=== PATIENT | male | born 1990 | race American Indian/Alaskan Native ===

== ENCOUNTER 2021-11-16 13:46 | Emergency (ER) | payer SELFPAY ==
[2021-11-16 17:20] LABS: Basophils % (Auto) 0.4 % (0.0-1.8); Eosinophils # (Auto) 0.1 K/mm3 (0.0-0.4); Eosinophils % (Auto) 0.8 % (0.0-4.3); Hematocrit 44.9 % (35.5-45.6); Hemoglobin 14.6 gm/dl (11.8-15.2); Lymphocytes # (Auto) 1.1 K/mm3 (1.2-5.4); Lymphocytes % (Auto) 9.9 % (13.4-35.0); Mean Corpuscular HGB Conc 33 % (32-34); Mean Corpuscular Volume 92 fl (84-94); Monocytes # (Auto) 0.6 K/mm3 (0.0-0.8); Monocytes % (Auto) 5.9 % (0.0-7.3); Platelet Count 292 K/mm3 (140-440); Red Blood Count 4.89 M/mm3 (3.65-5.03)
--- NOTE | 2021-11-16 17:21 | Emergency Department Report ---
ED General Adult HPI - General Chief complaint: Weakness Stated complaint: FALL Time Seen by Provider: 11/16/21 16:14 Source: patient, EMS Mode of arrival: Wheelchair Limitations: No Limitations - History of Present Illness Initial comments: Patient is a 31-year-old male presents emergency room complaints of lightheadedness that began yesterday. He states he feels near syncope. He denies any chest pain, shortness of breath, fever, nausea, vomiting, diarrhea, cough. Past medical history of asthma and states he needs a refill of his inhaler. He denies any medication allergies. He endorses tobacco, marijuana, alcohol use. He denies any other drug use. ED Review of Systems ROS: Stated complaint: FALL Other details as noted in HPI Comment: All other systems reviewed and negative ED Past Medical Hx - Past Medical History Previous Medical History?: Yes Hx Asthma: Yes ED Physical Exam - General Limitations: No Limitations General appearance: alert, in no apparent distress - Head Head exam: Present: atraumatic, normocephalic - Eye Eye exam: Present: normal appearance - ENT ENT exam: Present: mucous membranes moist - Respiratory Respiratory exam: Present: normal lung sounds bilaterally. Absent: respiratory distress, wheezes, rales, rhonchi, stridor, chest wall tenderness, accessory muscle use, decreased breath sounds, prolonged expiratory - Cardiovascular Cardiovascular Exam: Present: regular rate, normal rhythm, normal heart sounds. Absent: systolic murmur, diastolic murmur, rubs, gallop - Neurological Exam Neurological exam: Present: alert, oriented X3, CN II-XII intact, normal gait. Absent: motor sensory deficit - Psychiatric Psychiatric exam: Present: normal affect, normal mood - Skin Skin exam: Present: warm, dry, intact ED Course Vital Signs 11/16/21 11/16/21 13:57 18:46 Temperature 98 F Pulse Rate 102 H 71 Respiratory 16 18 Rate Blood Pressure 106/66 128/61 [Right] O2 Sat by Pulse 98 100 Oximetry ED Medical Decision Making - Lab Data Result diagrams: 11/16/21 16:57 11/16/21 16:57 Lab Results 11/16/21 11/16/21 11/16/21 Range/Units 16:57 16:57 16:57 WBC 10.8 (4.5-11.0) K/mm3 RBC 4.89 (3.65-5.03) M/mm3 Hgb 14.6 (11.8-15.2) gm/dl Hct 44.9 (35.5-45.6) % MCV 92 (84-94) fl MCH 30 (28-32) pg MCHC 33 (32-34) % RDW 14.0 (13.2-15.2) % Plt Count 292 (140-440) K/mm3 Lymph % (Auto) 9.9 L (13.4-35.0) % [place] % (Auto) 5.9 (0.0-7.3) % Eos % (Auto) 0.8 (0.0-4.3) % Baso % (Auto) 0.4 (0.0-1.8) % Lymph # (Auto) 1.1 L (1.2-5.4) K/mm3 [place] # (Auto) 0.6 (0.0-0.8) K/mm3 Eos # (Auto) 0.1 (0.0-0.4) K/mm3 Baso # (Auto) 0.0 (0.0-0.1) K/mm3 Seg Neutrophils % 83.0 H (40.0-70.0) % Seg Neutrophils # 9.0 H (1.8-7.7) K/mm3 Sodium 141 (137-145) mmol/L Potassium 4.8 (3.6-5.0) mmol/L Chloride 103.3 (98-107) mmol/L Carbon Dioxide 26 (22-30) mmol/L Anion Gap 17 mmol/L BUN 19 (9-20) mg/dL Creatinine 1.0 (0.8-1.3) mg/dL Estimated GFR > 60 ml/min BUN/Creatinine Ratio 19 % Glucose 103 H (75-100) mg/dL Calcium 10.0 (8.4-10.2) mg/dL Magnesium 2.00 (1.7-2.3) mg/dL Total Bilirubin 0.70 (0.1-1.2) mg/dL AST 19 (5-40) units/L ALT 17 (7-56) units/L Alkaline Phosphatase 62 (35-129) units/L Troponin T < 0.010 (0.00-0.029) ng/mL Total Protein 7.4 (6.3-8.2) g/dL Albumin 4.5 (3.9-5) g/dL Albumin/Globulin Ratio 1.6 % TSH 0.323 (0.270-4.200) mlU/mL Vital Signs 11/16/21 11/16/21 13:57 18:46 Temperature 98 F Pulse Rate 102 H 71 Respiratory 16 18 Rate Blood Pressure 106/66 128/61 [Right] O2 Sat by Pulse 98 100 Oximetry - EKG Data EKG shows normal: sinus rhythm, axis, intervals, QRS complexes Rate: normal - EKG Data 11/16/21 18:[address] elevation diffusely which could be from early repolarization, do not suspect pericarditis as there is no AR depression, attending Dr. Haynes also reviewed EKG and believes no STEMI and no pericarditis - Medical Decision Making Patient is a 31-year-old male presents emergency room complaints of lightheadedn ess that began yesterday. He states he feels near syncope. He denies any chest pain, shortness of breath, fever, nausea, vomiting, diarrhea, cough. Past medical history of asthma and states he needs a refill of his inhaler. He denies any medication allergies. He endorses tobacco, marijuana, alcohol use. He denies any other drug use. Vitals are stable. Patient has no focal neuro deficits on exam. Nontoxic-appearing. Labs are stable. EKG with diffuse mild ST elevation, could be early repolarization, do not suspect acute pericarditis, no signs of STEMI. Troponin is negative. Patient states he is hungry and is requesting snacks, patient was able to tolerate p.o. intake without difficulty. Discussed all results with patient. Advised patient Please increase your fluid intake. Follow-up with your primary care doctor. Return to emergency room for any new or worsening symptoms. Please avoid tobacco, marijuana, alcohol use. Critical care attestation.: If time is entered above; I have spent that time in minutes in the direct care of this critically ill patient, excluding procedure time. ED Disposition Clinical Impression: Lightheadedness Disposition: 01 HOME / SELF CARE / HOMELESS Is pt being admited?: No Does the pt Need Aspirin: No Condition: Stable Instructions: Near-Syncope Additional Instructions: Please increase your fluid intake. Follow-up with your primary care doctor. Return to emergency room for any new or worsening symptoms. Please avoid tobacco, marijuana, alcohol use. Referrals: PRIMARY CARE, [Primary Care Provider] - 3-5 Days CHRISTIAN BRISCOE MD [Staff Physician] - 3-5 Days [facility] [Provider Group] - 3-5 Days Time of Disposition: 18:00 Print Language: LIBERIAN
[2021-11-16 17:45] LABS: Alanine Aminotransferase 17 units/L (7-56); Albumin 4.5 g/dL (3.9-5); BUN/Creatinine Ratio 19; Blood Urea Nitrogen 19 mg/dL (9-20); Hemolysis Index 11
[2021-11-16 18:47] VITALS: BP 128/61
--- NOTE | 2021-11-17 08:51 | Electrocardiograph Report ---
[facility] Test Date: 2021-11-16 Test Time: 16:53:41 Pat Name: SAURAV LANDRY Department: Room: Gender: M Retail Manager: BARNEY : 1990 Requested By: LIEN DAWN Order Number: [id number] Reading MD: Geovanny Carbajal Measurements Intervals [place] Rate: 84 P: 62 VT: 143 QRS: 63 QRSD: 83 T: 33 QT: 341 QTc: 402 Interpretive Statements Sinus rhythm ST elevation suggests acute pericarditis No previous ECG available for comparison Electronically Signed On 11-17-2021 8:50:36 EST by Geovanny Carbajal
== END 2021-11-16 18:55 | disposition home or self-care (01) ==
LOC: ED 13:46
DX: R42 Dizziness and giddiness (principal); R55 Syncope and collapse
CPT/HCPCS: 36415; 80053; 83735; 84443; 84484; 85025; 93005; 93010; 99283